=== PATIENT | female | born 2005 | race Caucasian/White ===

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

== ENCOUNTER 2024-04-02 06:43 | Day surgery (SDC) | payer BC ==
[2024-03-30 16:09] LABS: Absolute Eosinophils 0.1 K/uL (0-0.5); Absolute Lymphocytes (CBC) 2.2 K/uL (0.7-4.9); Absolute Monocytes 0.4 K/uL (0.1-1.3); Absolute Neutrophil 3.9 K/uL (1.8-8.0); Basophils % 0.7 % (0-1.3); Eosinophils % 1.5 % (0-4.4); Hematocrit 37.7 % (36.0-45.0); Hemoglobin 12.5 g/dL (12.0-15.0); Lymphocytes % 33.2 % (15.3-44.8); MCH 30.3 pg (27.0-35.0); MCHC 33.1 g/dL (32.0-36.0); MCV 91.7 fL (80-100); Neutrophils % 58.6 % (41.7-73.7); Nucleated Red Blood Cells % 0.1 % (0-0); Platelets 203 thou/uL (152-406); RBC Red Blood Cell Count 4.11 M/uL (3.86-4.86); Red Cell Distribution Width 13.3 % (12.1-15.2)
[2024-03-30 16:22] LABS: Anion Gap 10.3 mEq/L (5.0-15.0); Potassium 4.3 mEq/L (3.5-5.1)
[2024-04-02] MEDS: NA CHLORIDE 0.9% 1,000 ML ONE (07:30)
--- NOTE | 2024-04-02 08:26 | RAD REPORT ---
EXAMINATION: PLACEMENT OF RIGHT BREAST NEEDLE LOCALIZATION WIRE USING SONOGRAPHIC GUIDANCE Preoperative placement of RIGHT breast needle localization wire. CLINICAL INDICATION: Female 19 years old. RT BREAST NEEDLE LOC INFORMED CONSENT: The risk, benefits, alternatives and potential complications of sonographically tim ded breast needle localization were discussed with the patient. An informed consent sheer was signed. The risks include but are not limited to the following: bleeding, infection, vascular injury, organ injury, pneumothorax, allergic reaction, and the need for emergent surgery/procedures, needle dislocation. [id number]. SEDATION: None. LOCALIZATION SITE: 2:00 position of the right breast. WIRE: Kopans wire needle localization device, Medial approach. COMPLICATION: None. FINDINGS: Appropriate audible time out was performed. The skin was prepped in the normal fashion. The soft tissues were anesthetized with lidocaine. Utilizing mammographic guidance, a localization device was placed into the location described above. The localization device was deposited at the krystina ropriate site in the RIGHT breast as described above. Dressing was applied after the procedure. The patient tolerated the procedure well without immediate complication. The lesion is located 1.4 cm fro m the angle of the wire. This was communicated to Dr. Guerra by Dr. Snyder at 0814 on 04/02/24. IMPRESSION: Successful placement of RIGHT breast localizer device as described above. Specimen radiograph is elis mmended
[2024-04-02 09:00] LABS: Urine Specific Gravity/Preg >1.030 (1.005-1.030)
[2024-04-02] MEDS: CEFAZOLIN SODIUM 1 GM/VIAL ONE (11:08)
[2024-04-02] MEDS ORDERED: ONDANSETRON 4 MG/2 ML VIAL ONE (11:34)
[2024-04-02] MEDS ORDERED: dexAMETHasone 10 MG/ML VIAL ONE (11:34)
[2024-04-02] MEDS ORDERED: KETOROLAC 30 MG/ML INJ ONE (11:34)
[2024-04-02] MEDS ORDERED: propofoL 200 MG/20 ML VIAL IV ONE (11:34)
[2024-04-02] MEDS ORDERED: FENTANYL CITR 100 MCG/2 ML ONE (11:34)
[2024-04-02] MEDS ORDERED: MIDAZOLAM HCL 2 MG/2 ML INJ ONE (11:35)
[2024-04-02] MEDS ORDERED: LIDOCAINE 2% MPF 5 ML VIAL ONE (11:35)
--- NOTE | 2024-04-02 12:07 | EKG ---
Test Date: 2024-03-30 Test Time: 16:45:20 Blowing Engineer: CHARAN MEASUREMENT RESULTS: Intervals: Rate: 62 WY: 142 QRSD: 84 QT: 414 QTc: 420 [place]: P: 38 WY: 142 QRS: 46 T: 19 INTERPRETIVE STATEMENTS: Normal sinus rhythm Nonspecific T wave abnormality Abnormal ECG Compared to ECG 12/04/2018 13:55:44 T-wave abnormality now present Electronically Signed On 04-02-24 12:06:20 ACID POLYMERIZATION OPERATOR by Fernie Hayes
--- NOTE | 2024-04-02 14:46 | P.BOP ---
Preoperative diagnosis: right breast mass Postoperative diagnosis: same Primary procedure: Right breast lumpectomy needle localized Estimated blood loss: <10cc Specimen: mass with intact needle Findings: Lesion within the speciment by Dr Schofield Anesthesia: General Complications: None Transferred to: Recovery Room Condition: Good
[2024-04-02 15:04] VITALS: O2SAT 100
[2024-04-02] MEDS ORDERED: TRAMADOL 37.5mg/APAP 325mg PER TAB ONE (15:36)
[2024-04-02 16:04] VITALS: BP 103/68; TEMP 97.5
--- NOTE | 2024-04-03 10:57 | RAD REPORT ---
EXAM:Surgical Specimen HISTORY: SPEC COMPARISON: Same-day ultrasound localization Technique: Limited ultrasound involving the surgical specimen from the patient's lumpectomy. IMPRESSION: The needle localized lesion is present within the specimen. Findings were reported directly to the reddy rgeon, Dr. Guerra, by Dr. Snyder at 1434 on 04/02/24.
== END 2024-04-02 16:14 | disposition home or self-care (01) ==
LOC: OR 06:43
PROVIDERS: ATTEND Surgery
PROC: 0HBT0ZX Excision of Right Breast, Open Approach, Diagnostic (ICD-10-PCS; principal; 2024-04-02 13:15)
DX: D24.1 Benign neoplasm of right breast (principal); N60.31 Fibrosclerosis of right breast; F32.A Depression, unspecified; F41.9 Anxiety disorder, unspecified; E78.00 Pure hypercholesterolemia, unspecified; E11.9 Type 2 diabetes mellitus without complications; E05.90 Thyrotoxicosis, unspecified without thyrotoxic crisis or storm
CPT/HCPCS: 93005; 85025; 80048; 36415; 81025; 82947 ×2; 88307; 76098; 19285; 19301; J2704; J2003; J2250; J3010; J1100; J2405; J7030; J0690; 88305